=== PATIENT | female | born 1975 | race Caucasian/White ===

== ENCOUNTER 2021-02-17 20:42 | Emergency (ER) | payer OTHER ==
[~2021-02-17] VITALS: Ht 167.6 cm; Wt 122.7 kg
[2021-02-17 20:51] VITALS: TEMP 98.3
[2021-02-17] MEDS ORDERED: CEPHALEXIN500 M1 PO (21:30)
[2021-02-17 21:40] VITALS: BP 136/75; PULSE 82
== END 2021-02-17 21:40 | disposition home or self-care (01) ==
LOC: COL.ER 20:42
DX: S01.21XA Laceration without foreign body of nose, initial encounter (principal); S01.511A Laceration without foreign body of lip, initial encounter; Z88.0 Allergy status to penicillin; Z88.2 Allergy status to sulfonamides; Z91.040 Latex allergy status; W01.198A Fall on same level from slipping, tripping and stumbling with subsequent striking against other object, initial encounter; Y92.091 Bathroom in other non-institutional residence as the place of occurrence of the external cause